=== PATIENT | male | born 1975 | race American Indian/Alaskan Native ===

== ENCOUNTER 2021-06-08 11:49 | Emergency (ER) | payer OTHER, SELFPAY ==
[2021-06-08 11:58] VITALS: BP 117/73; PULSE 106; RESP 15; TEMP 36.4; O2SAT 98; BMI 23.7
[2021-06-08 12:43] LABS: Ictotest Urine Negative (Negative)
[2021-06-08 12:49] LABS: Bacteria Urine None Seen; Mucus Urine 2+ (Negative); RBC Urine 1-5/HPF (0-5/HPF); Squamous Epithelial Cell Urine None Seen (0-5/HPF); WBC Urine 0-1/HPF (0-5/HPF)
[2021-06-08 12:50] LABS: Culture Indicated Urine Cult Not Indicated
[2021-06-08 13:50] VITALS: BP 115/79; PULSE 82; O2SAT 97
--- NOTE | 2021-06-08 14:31 | ED_ITS ---
HPI - Abdominal Pain <Kwabena Borja PA-C - Last Filed: 06/08/21 16:11> General Chief Complaint: Abdominal Pain Stated Complaint: Abd pain x 2 days Time Seen by Provider: 06/08/21 14:26 Source: patient Mode of arrival: Ambulatory History of Present Illness HPI narrative: Patient is a 45-year-old male who presents to the ED complaining of lower abdominal pain that started 2 days ago. [place] and has had previous abdominal infections that required antibiotics. He reports symptoms are similar he has been having diarrhea for the past 2 days pain increases upon the urge to have a bowel movement he denies any nausea or vomiting. There has been no recent travel or no known exposure that he can report. He was scheduled for colonoscopy that he has not completed. No reported fever chills body aches chest pain shortness of breath. Related Data Allergies Allergy/AdvReac Type Severity Reaction Status Date / Time No Known Drug Allergies Allergy Verified 06/08/21 11:58 Review of Systems <Kwabena Borja PA-C - Last Filed: 06/08/21 16:11> Review of Systems ROS Unobtainable: All systems reviewed & are unremarkable except as noted in HPI and below Constitutional Constitutional: Denies chills, Denies fatigue, Denies fever(s), Denies frequent falls, Denies lethargy and Denies weakness Eyes Eyes: Denies change in vision, Denies eye discharge, Denies irritation and Denies loss of vision ENT Ears, Nose, Mouth, and Throat: Denies change in voice, Denies dizziness, Denies neck pain, Denies sore throat and Denies throat swelling Cardiovascular Cardiovascular: Denies chest pain, Denies irregular heart rhythm, Denies lightheadedness, Denies palpitations, Denies dyspnea, Denies dyspnea on exertion and Denies orthopnea Respiratory Respiratory: Denies cough, Denies dyspnea, Denies dyspnea on exertion and Denies wheezing Gastrointestinal Gastrointestinal: Reports abdominal pain, Reports change in bowel habits, Rep orts diarrhea, Denies nausea and Denies vomiting Genitourinary Genitourinary: Denies hematuria, Denies flank pain, Denies urinary incontinence and Denies urinary urgency Musculoskeletal Musculoskeletal: Denies back pain, Denies muscle weakness, Denies neck pain, Denies numbness and Denies tingling Integumentary/Breasts Skin/Breast: Denies pruritus, Denies erythema, Denies rash and Denies wounds Neurologic Neurologic: Denies behavioral changes, Denies confusion, Denies dizziness, Denies frequent falls, Denies loss of vision, Denies numbness, Denies tingling and Denies weakness Psychiatric Psychiatric: Denies anxiety, Denies behavioral changes, Denies confusion, Denies depression, Denies homicidal ideation and Denies suicidal ideation Endocrine Endocrine: Denies fatigue, Denies flushing and Denies palpitations Hematologic/Lymphatic Hematologic/Lymphatic: Denies easy bruising Allergic/Immunologic Allergic/Immunologic: Denies urticaria, Denies throat swelling and Denies wheezing Patient History <Kwabena Borja PA-C - Last Filed: 06/08/21 16:11> Social History Smoking Status: Current every day smoker Smoking Status: Current every day smoker alcohol intake frequency: 0-2 drinks per day Substance Use Type: marijuana Exam <Kwabena Borja PA-C - Last Filed: 06/08/21 16:11> Initial Vital Signs Initial Vital Signs: Vital Signs Temperature 97.6 F 06/08/21 11:58 Pulse Rate 106 H 06/08/21 11:58 Respiratory Rate 15 06/08/21 11:58 Blood Pressure 117/73 06/08/21 11:58 Pulse Oximetry 98 06/08/21 11:58 Const General: cooperative, healthy appearing and comfortable Resp Effort & Inspection: normal respiratory effort and able to speak in complete sentences Auscultation: clear to auscultation bilaterally GI Inspection: normal to inspection Palpation: soft and no hepatosplenomegaly Percussion: normal to percussion Auscultation: hyperactive bowel sounds <DO Basilio Dai Last Filed: 06/08/21 16:23> Initial Vital Signs Initial Vital Signs: Vital Signs Temperature 97.6 F 06/08/21 11:58 Pulse Rate 106 H 06/08/21 11:58 Respiratory Rate 15 06/08/21 11:58 Blood Pressure 117/73 06/08/21 11:58 Pulse Oximetry 98 06/08/21 11:58 Course <Kwabena Borja PA-C - Last Filed: 06/08/21 16:11> Orders Ordered: ED Orders 06/08/21 12:19 Ictotest Urine Stat Urine Microscopic Stat 06/08/21 14:00 GI Panel (Film Array) Stat Vital Signs Vital signs: Vital Signs - 8 hr 06/08/21 11:58 06/08/21 13:50 06/08/21 16:21 Temperature 97.6 F Pulse Rate 106 H 82 88 Respiratory Rate 15 18 Blood Pressure 117/73 115/79 122/72 Pulse Oximetry 98 97 97 <Donis Hankins DO - Last Filed: 06/08/21 16:23> Orders Ordered: ED Orders 06/08/21 12:19 Ictotest Urine Stat Urine Microscopic Stat 06/08/21 14:00 GI Panel (Film Array) Stat Vital Signs Vital signs: Vital Signs - 8 hr 06/08/21 11:58 06/08/21 13:50 06/08/21 16:21 Temperature 97.6 F Pulse Rate 106 H 82 88 Respiratory Rate 15 18 Blood Pressure 117/73 115/79 122/72 Pulse Oximetry 98 97 97 MDM - Abdominal Pain <Kwabena Borja PA-C - Last Filed: 06/08/21 16:11> Differential Diagnosis Differential diagnosis: Likely abdominal pain Lab Data Labs: Lab Results 06/08/21 06/08/21 Range/Units 12:19 14:00 Ur Bilirubin Confirm Negative (Negative) Urine RBC 1-5/hpf (0-5/HPF) Urine WBC 0-1/hpf (0-5/HPF) Ur Squamous Epith Cells None seen (0-5/HPF) Urine Bacteria None seen (None) Urine Mucus 2+ H (Negative) Ur Culture Indicated? Cult not indicated Stl C. cayetanensis PCR Not detected (Not Detect) Stool Rotavirus (PCR) Not detected (Not Detect) Stool Adenovirus (PCR) Not detected (Not Detect) Stool Astrovirus (PCR) Not detected (Not Detect) Stool Cryptosporidium PCR Not detected (Not Detect) Stl E.coli Shiga Tox PCR Not detected (Not Detect) St Sh/Enteroin Ecoli PCR Not detected (Not Detect) Stool E coli O157 PCR Not Reportable Stl Enterotoxigenic E PCR Not detected (Not Detect) Stool EPEC (PCR) Not detected (Not Detect) Stl E. histolytica PCR Not detected (Not Detect) Stool Giardia Lamblia PCR Not detected (Not Detect) Stool Sapovirus (PCR) Not detected (Not Detect) Stl P. shigelloides PCR Not detected (Not Detect) St Y.enterocolitica PCR Not detected (Not Detect) Stool Vibrio (PCR) Not detected (Not Detect) Stl Vibrio cholerae PCR Not detected (Not Detect) Stl Enteroaggr Ecoli PCR Not detected (Not Detect) Stl Norovirus GI/GII PCR Not detected (Not Detect) Campylobacter (PCR) Not detected (Not Detect) C. difficile Tox (PCR) Not detected (Not Detect) Salmonella (PCR) Not detected (Not Detect) Point of care testing: Urine Dip Bedside Urine Glucose Negative Bedside Urine Bilirubin + 1 Bedside Urine Ketone + 15 Urine Specific [place] 1.030 Bedside Urine Occult Blood +++ Bedside Urine pH 6.0 Bedside Urine Protein ++ 100 Bedside Urine Urobilinogen - Negative Bedside Urine Nitrite - Negative Bedside Urine Leukocytes - Negative Esterase MDM Narrative Medical decision making narrative: Patient was evaluated for lower abdominal pain with associated diarrhea. Previously he has been found to have specific infectious agent that was required and IV antibiotics. GI panel shows no evidence of any infectious process for explain his diarrhea with the lack of blood in his diarrhea or mucus in his diarrhea I would recommend that he continue pushing fluids and he can take antidiarrheal medication if the diarrhea does not subside. He can return to the ED for any further concerns. Patient was discharged home <Donis Hankins, - Last Filed: 06/08/21 16:23> Lab Data Labs: Lab Results 06/08/21 06/08/21 Range/Units 12:19 14:00 Ur Bilirubin Confirm Negative (Negative) Urine RBC 1-5/hpf (0-5/HPF) Urine WBC 0-1/hpf (0-5/HPF) Ur Squamous Epith Cells None seen (0-5/HPF) Urine Bacteria None seen (None) Urine Mucus 2+ H (Negative) Ur Culture Indicated? Cult not indicated Stl C. cayetanensis PCR Not detected (Not Detect) Stool Rotavirus (PCR) Not detected (Not Detect) Stool Adenovirus (PCR) Not detected (Not Detect) Stool Astrovirus (PCR) Not detected (Not Detect) Stool Cryptosporidium PCR Not detected (Not Detect) Stl E.coli Shiga Tox PCR Not detected (Not Detect) St Sh/Enteroin Ecoli PCR Not detected (Not Detect) Stool E coli O157 PCR Not Reportable Stl Enterotoxigenic E PCR Not detected (Not Detect) Stool EPEC (PCR) Not detected (Not Detect) Stl E. histolytica PCR Not detected (Not Detect) Stool Giardia Lamblia PCR Not detected (Not Detect) Stool Sapovirus (PCR) Not detected (Not Detect) Stl P. shigelloides PCR Not detected (Not Detect) St Y.enterocolitica PCR Not detected (Not Detect) Stool Vibrio (PCR) Not detected (Not Detect) Stl Vibrio cholerae PCR Not detected (Not Detect) Stl Enteroaggr Ecoli PCR Not detected (Not Detect) Stl Norovirus GI/GII PCR Not detected (Not Detect) Campylobacter (PCR) Not detected (Not Detect) C. difficile Tox (PCR) Not detected (Not Detect) Salmonella (PCR) Not detected (Not Detect) Point of care testing: Urine Dip Bedside Urine Glucose Negative Bedside Urine Bilirubin + 1 Bedside Urine Ketone + 15 Urine Specific [place] 1.030 Bedside Urine Occult Blood +++ Bedside Urine pH 6.0 Bedside Urine Protein ++ 100 Bedside Urine Urobilinogen - Negative Bedside Urine Nitrite - Negative Bedside Urine Leukocytes - Negative Esterase Discharge Plan Departure Patient Disposition: Home Clinical Impression: Abdominal pain, Diarrhea Instructions: Diarrhea, DI for Abdominal Pain-Adult Activity Restrictions/Additional Instructions: You were seen in for your abdominal pain today. Your stool panel did not show any infectious process at this point however recommend you continue to push fluids as much as possible and if no improvement in your diarrhea you can take some antidiarrheal medication. If your pain continues or worsens you can return to the ED for further evaluation or follow-up with your PCP. Thank you for the opportunity to care for you today <Donis Hankins, DO - Last Filed: 06/08/21 16:23> Cosign ED Attending Cosmelature Attestation: Dr Hankins Co-Sign Statement: I was available for consultation during this patient's emergency department visit. This chart is signed by myself for administrative purposes only. I did not have direct contact with this patient during this visit. They were seen independently by the APC.
[2021-06-08 15:41] LABS: Adenovirus F 40/41 Not Detected (Not Detect); Astrovirus Not Detected (Not Detect); Campylobacter Not Detected (Not Detect); Clostridium difficile toxin AB Not Detected (Not Detect); Cryptosporidium Not Detected (Not Detect); Cyclospora cayetanensis Not Detected (Not Detect); Entamoeba histolytica Not Detected (Not Detect); Enteroaggregative E.coli Not Detected (Not Detect); Enteropathogenic E.coli Not Detected (Not Detect); Enterotoxigenic E.coli It/st Not Detected (Not Detect); Giardia lamblia Not Detected (Not Detect); Norovirus GI/GII Not Detected (Not Detect); Plesiomonsa shigelloides Not Detected (Not Detect); Rotavirus A Not Detected (Not Detect); Salmonella Not Detected (Not Detect); Sapovirus Not Detected (Not Detect); Shiga-like toxin-prod E.coli Not Detected (Not Detect); Shigella/Enteroinvasive E.coli Not Detected (Not Detect); Vibrio Not Detected (Not Detect); Vibrio cholerae Not Detected (Not Detect); Yersinia enterocolitica Not Detected (Not Detect)
[2021-06-08 16:21] VITALS: BP 122/72; PULSE 88; RESP 18; O2SAT 97
== END 2021-06-08 16:22 | disposition home or self-care (01) ==
PROVIDERS: Emergency Medicine; Emergency Provider Physician Assistant
DX: R10.30 Lower abdominal pain, unspecified (principal); R19.7 Diarrhea, unspecified; F17.200 Nicotine dependence, unspecified, uncomplicated
CPT/HCPCS: 81003; 81015; 87507; 99282